=== PATIENT | female | born 1985 | race Caucasian/White ===

== ENCOUNTER 2016-06-17 13:01 | Observation (INO) | payer OTHER ==
[~2016-06-17] VITALS: Ht 185.4 cm; Wt 84.7 kg
[~2016-06-17 13:01] MED LIST: ACEBUTOLOL HCL200 MG PO; AMOX TR-K CLV1 EAC4 PO; Aspirin E.C. PO; BACTRIM,SEPT1 TABLET PO; BENTYL10 MG PO; CITRATE OF MAG296 ML PO; DULCOLAX5 MG PO; FIORICET 50-301 EACH PO; HUMALOG; HUMALOG100 UNIT/1 SC; HUMALOG100 UNITS/ PO; HYDROCODON-ACE1 EAC7 PO; IMDUR30 MG PO; ISOSORBIDE MONO30 MG PO; KEFLEX500 MG PO; LANTUS 3 M100 UNITS1 SC; LANTUS100 UNIT/1 SQ; LIPITOR40 MG PO; LISINOPRIL10 MG PO; LISINOPRIL5 MG PO; LO-DOSE ASPIRIN81 M1 PO; LOPRESSOR25 MG PO; Lipitor PO; Lopressor PO; METFORMIN HCL1000 MG PO; METHYLDOPA250 MG PO; MIRALAX17 GM PO; MOBIC15 MG PO; MOBIC7.5 MG PO; MOTRIN800 MG PO; NAPROSYN500 MG PO; NAPROXEN500 MG PO; NICOTINE PATCH1 EAC2 TD; NORCO 5/3251 TABLET PO; NORCO 7.5/321 TABLET PO; NOVOLIN N100 UNITS/ SC; NOVOLOG 10100 UNITS/ SC; ONDANSETRON ODT4 MG PO; PEN-VEE K,VEET500 MG PO; PEPCID20 MG PO; PERCOCET 5/31 TABLET PO; PHENERGAN25 MG PO; PLAVIX75 MG PO; PRENATAL TABLE1 EAC3 PO; PROMETHAZINE HC25 M1 PO; Plavix PO; RHINOCORT AQUA8.6 G1 NS; TRAMADOL HCL50 MG PO; ULTRACET1 TABLET PO; ULTRAM50 MG PO; VALIUM2 MG PO; ZOFRAN ODT4 MG PO; ZOFRAN ODT8 MG PO; ZOFRAN4 MG PO; Zestril,Prinivil PO
[2016-06-17 13:55] LABS: HEMATOCRIT 41.6 % (36.0-46.0); MCH 29.2 PG (29.0-34.0); MCHC 34.1 G/DL (30.0-36.0); MCV 85.4 FL (83-99); MEAN PLAT.VOLUME 10.9 uM^3 (9.5-12.4); PLATELET COUNT 250 K/uL (156-360); RBC DIS.WIDTH-CV 13.6 % (11.8-14.6); RBC DIS.WIDTH-SD 41.9 % (39-53); RED BLOOD COUNT 4.87 M/uL (3.80-5.20); WHITE BLOOD COUNT 11.7 K/uL (4.1-10.2)
[2016-06-17 14:05] LABS: CHLORIDE 106 mEq/L (99-109); POTASSIUM 4.2 mEq/L (3.7-5.4); SODIUM 139 mEq/L (136-147)
[2016-06-17 14:06] LABS: GLUCOSE 184 mg/dL (70-99)
[2016-06-17 14:07] LABS: D-DIMER ELISA < 0.15 mg/L FEU (< 0.57)
[2016-06-17 14:08] LABS: ANION GAP 12 MEQ/L (2-14)
[2016-06-17 14:10] LABS: GFR ESTIMATE (CALCULATED) > 59 mL/min/
[2016-06-17 14:11] LABS: UREA NITROGEN (BUN) 13 mg/dL (9-23)
[2016-06-17 14:20] LABS: TROP-I INTERPRETATION NEGATIVE; TROPONIN-I < 0.01 ng/mL (0.0-0.30)
[2016-06-17 14:22] LABS: QUANTITATIVE HCG < 4.0 MIU/ML
[2016-06-17] MEDS ORDERED: ALEVE220 MG PO (14:54)
[2016-06-17] MEDS ORDERED: DEPO-PROVER150 MG/ML IM (14:55)
[2016-06-17] MEDS ORDERED: LO-DOSE ASPIRIN81 M1 PO (14:55)
[2016-06-17] MEDS ORDERED: NICODERM CQ1 EAC2 TD (14:56)
[2016-06-17] MEDS ORDERED: MUCINEX DM ER1 EACH PO (14:56)
[2016-06-17] MEDS ORDERED: NICOTINE GUM4 MG BC (14:57)
[2016-06-17 15:50] VITALS: BP 137/91
[2016-06-17 16:50] LABS: POINT-OF-CARE METER ID UU13113831
[2016-06-17 19:35] LABS: TROP-I INTERPRETATION NEGATIVE; TROPONIN-I 0.01 ng/mL (0.0-0.30)
[2016-06-17 20:00] VITALS: BP 135/80
[2016-06-17 21:50] LABS: POINT-OF-CARE METER ID UU13113831
[2016-06-18 01:26] LABS: TROP-I INTERPRETATION NEGATIVE; TROPONIN-I < 0.01 ng/mL (0.0-0.30)
[2016-06-18 04:00] VITALS: BP 136/79
[2016-06-18 06:13] LABS: HEMATOCRIT 41.7 % (36.0-46.0); MCH 28.2 PG (29.0-34.0); MCHC 32.4 G/DL (30.0-36.0); MCV 87.2 FL (83-99); MEAN PLAT.VOLUME 11.5 uM^3 (9.5-12.4); PLATELET COUNT 230 K/uL (156-360); RBC DIS.WIDTH-CV 13.7 % (11.8-14.6); RBC DIS.WIDTH-SD 43.5 % (39-53); RED BLOOD COUNT 4.78 M/uL (3.80-5.20); WHITE BLOOD COUNT 12.7 K/uL (4.1-10.2)
[2016-06-18 06:31] LABS: ANION GAP 8 MEQ/L (2-14); CHLORIDE 107 MEQ/L (99-109); GFR ESTIMATE (CALCULATED) > 59 mL/min/; GLUCOSE 166 mg/dL (70-99); POTASSIUM 4.5 MEQ/L (3.7-5.4); SAMPLE HEMOLYSIS CHECK 0; SAMPLE ICTERIC CHECK 0; SAMPLE LIPEMIA CHECK 0; SODIUM 139 MEQ/L (136-147)
[2016-06-18 06:51] LABS: UREA NITROGEN (BUN) 23 mg/dL (9-23)
[2016-06-18 07:28] LABS: POINT-OF-CARE METER ID UU13113831
[2016-06-18 08:25] LABS: LIPASE 8 U/L (1.0-51.0)
[2016-06-18 08:46] VITALS: BP 113/66; BP 136/77
[2016-06-18] MEDS ORDERED: CLOPIDOGREL75 MG PO (10:40)
[2016-06-18] MEDS ORDERED: CARVEDILOL6.25 MG PO (10:40)
[2016-06-18] MEDS ORDERED: ATORVASTATIN CA40 MG PO (10:40)
[2016-06-18] MEDS ORDERED: LISINOPRIL5 MG PO (10:40)
[2016-06-18 11:35] VITALS: BP 129/76
[2016-06-18 12:15] LABS: POINT-OF-CARE METER ID UU13113831
== END 2016-06-18 14:06 | disposition home or self-care (01) ==
LOC: EME 13:01 → EDOF 14:32 → 5WEST 14:32
PROVIDERS: Hospitalist; Physician Assistant
DX: R07.89 Other chest pain (principal); E11.9 Type 2 diabetes mellitus without complications; I10 Essential (primary) hypertension; I25.2 Old myocardial infarction; I25.10 Atherosclerotic heart disease of native coronary artery without angina pectoris; Z79.4 Long term (current) use of insulin; F17.210 Nicotine dependence, cigarettes, uncomplicated; E78.5 Hyperlipidemia, unspecified
CPT/HCPCS: 71020; 80048; 82948; 83690; 84484; 84702; 85027; 85379; 93005; 99281; 99285; G0378; J1650; J1815; J1885; J2270; J2405

== ENCOUNTER 2016-07-25 20:41 | Emergency (ER) | payer OTHER ==
[~2016-07-25] VITALS: Ht 185.4 cm; Wt 87.2 kg
[~2016-07-25 20:41] MED LIST changes: +ALEVE220 MG PO; +ATORVASTATIN CA40 MG PO; +CARVEDILOL6.25 MG PO; +CLOPIDOGREL75 MG PO; +DEPO-PROVER150 MG/ML IM; +MUCINEX DM ER1 EACH PO; +NICODERM CQ1 EAC2 TD; +NICOTINE GUM4 MG BC
[2016-07-25] MEDS ORDERED: TRAMADOL HCL50 MG PO (21:56)
[2016-07-25 22:13] VITALS: BP 157/106
== END 2016-07-25 22:13 | disposition home or self-care (01) ==
LOC: EME 20:41
DX: S20.211A Contusion of right front wall of thorax, initial encounter (principal); W01.0XXA Fall on same level from slipping, tripping and stumbling without subsequent striking against object, initial encounter; R11.0 Nausea; I10 Essential (primary) hypertension; E11.9 Type 2 diabetes mellitus without complications; Z79.4 Long term (current) use of insulin; Z79.82 Long term (current) use of aspirin; F17.200 Nicotine dependence, unspecified, uncomplicated
CPT/HCPCS: 71101; 99281; 99283